=== PATIENT | male | born 1970 | race Caucasian/White ===

== ENCOUNTER → 2019-05-25 | Day surgery (SDC) | payer BC ==
[~2019-05-25] MED LIST: Lactated Ringers 1,000 ML IV SCH; Midazolam 1 MG/ML 2 ML SDV ONE; Propofol 200 MG/20 ML SDV ONE; fentaNYL 100 MCG/2 ML SDV ONE; hydrOXYzine HCl 100 MG/2 ML SDV IM ONE
[2019-05-25 09:27] VITALS: BP 122/78; PULSE 82
--- NOTE | 2019-05-25 11:43 | OR ---
DATE OF PROCEDURE: 05/25/2019 SURGEON: Torito Dan MD PREOPERATIVE DIAGNOSES: Gastroesophageal reflux disease, colon cancer screening. POSTOPERATIVE DIAGNOSES: Gastroesophageal reflux disease, hiatal hernia, gastric polyp, unremarkable colonoscopy. PROCEDURES: Esophagogastroduodenoscopy with biopsy resection of gastric polyp, biopsy of gastroesophageal junction, colonoscopy to the cecum. ANESTHESIA: IV anesthesia with monitored anesthesia care. INDICATION: This 48-year-old white male is referred for upper and lower endoscopy. Indication for upper endoscopy is gastroesophageal reflux disease. He is having heartburn. Indication for colonoscopy is colon cancer screening. He has never had a colonoscopic exam. I counseled him for the procedures, including risks and alternatives, and he gave his informed consent to proceed. DESCRIPTION OF PROCEDURE: The patient was placed in the left lateral decubitus position. IV anesthesia was administered by the Anesthesia Service. Time-out was held. The flexible video Olympus upper endoscope was passed through his mouth, down the esophagus, and into his stomach. The scope was easily passed through the pylorus, into the duodenum, reaching its third portion. The scope was then slowly withdrawn, examining the mucosa throughout. The duodenal mucosa appeared unremarkable. The scope was brought up through the pylorus into the antrum. The antrum appeared unremarkable. The scope was retroflexed. The most proximal stomach appeared unremarkable, except for a hiatal hernia. We would also see small gastric polyps. The scope was straightened and removed the largest of the gastric polyps with the biopsy forceps. It broke off like a fundic gland polyp would. The scope was then brought up through the hiatal hernia to the GE junction. This appeared inflamed. We obtained multiple, totalling at least 6 biopsies of the gastroesophageal junction. The scope was then brought proximally up through remainder of the esophagus, which otherwise appeared unremarkable, and it was removed. Next, a rectal exam was performed, which was unremarkable. The flexible video Olympus colonoscope was introduced through his anus, up his rectum, out his colon all the way to the cecum. Once the cecum was reached, the scope was slowly withdrawn, examining the mucosa throughout. No mucosal abnormalities were noted. The scope was retroflexed in the rectum with the distal rectum appearing unremarkable. The scope was straightened and removed. He tolerated the procedure well. Torito Dan MD /[id number]
== END ==
LOC: JP.SDS 06:02
PROVIDERS: ATTEND Surgery
DX: Z12.11 Encounter for screening for malignant neoplasm of colon (principal); K21.9 Gastro-esophageal reflux disease without esophagitis; K44.9 Diaphragmatic hernia without obstruction or gangrene; K31.7 Polyp of stomach and duodenum; F17.210 Nicotine dependence, cigarettes, uncomplicated; E66.9 Obesity, unspecified; Z68.41 Body mass index [BMI] 40.0-44.9, adult
CPT/HCPCS: 43239; 45378; 88305; J2250; J2704; J3010; J7120

== ENCOUNTER → 2020-05-20 | Day surgery (SDC) | payer BC ==
[~2020-05-20] MED LIST changes: +Dextrose 5%-Lactated Ringers 1,000 ML IV SCH; +Glycopyrrolate 0.2 MG/ML 2 ML SDV IVPUSH ONE; -Lactated Ringers 1,000 ML IV SCH; -hydrOXYzine HCl 100 MG/2 ML SDV IM ONE
[2020-05-20 14:10] VITALS: BP 112/71; PULSE 64
--- NOTE | 2020-05-27 10:46 | OR ---
DATE OF PROCEDURE: 05/20/2020 SURGEON: Jose Carter MD PREOPERATIVE DIAGNOSIS: Gastroesophageal reflux disease refractory to medical management. POSTOPERATIVE DIAGNOSES: 1. Moderate-sized hiatal hernia (4 cm) with active gastroesophageal reflux disease and possible Cummins's esophagus. 2. Fundic gastric gland polyps. OPERATIVE PROCEDURE: Flexible upper GI endoscopy with biopsies of esophagogastric junction for histologic evaluation. ANESTHESIA: IV sedation. INDICATION FOR PROCEDURE: A 49-year-old presenting with increasingly symptomatic gastroesophageal reflux disease associated with morbid obesity and also likely some significant obstructive sleep apnea. The plan is to proceed with upper GI endoscopy with biopsies as indicated. Potential risks including bleeding and perforation were discussed, and the patient wishes to proceed. DETAILS OF PROCEDURE: The patient was taken to the operating room, placed in a left lateral decubitus position. IV sedation was administered, after which the upper GI endoscope was passed orally through the length of the esophagus, into the stomach with retroflexion view of the fundus, thereafter through the pyloric channel and into the proximal duodenum. Findings included some reddening and edema in the hypopharynx and larynx consistent with ongoing reflux disease. The upper esophageal sphincter and esophageal body were unremarkable. The patient did have a moderate-sized hiatal hernia measuring around 4 cm. It was associated with quite active gastroesophageal reflux disease with reddened streaks extending upward into the esophagus. There was also some possible or probable Cummins's esophagus with both upper extension of the columnar mucosa above the upper gastric folds as well as some islands of columnar mucosa up within the esophagus. This was not associated with any plaquing or stricturing or gross evidence of neoplastic change. Within the stomach, the patient had multiple fundic gland-type polyps. These previously had been biopsied. Otherwise, the remainder of the gastric and proximal duodenal exams were unremarkable. At this point, multiple biopsies were obtained from esophagogastric junction, sent for histologic evaluation. Minimal bleeding from the biopsy sites was seen and the procedure then concluded. It was noted that the patient had a quite obvious marked obstructive sleep apnea with the physical ther requiring quite a bit of work in terms of maintaining airway patency during the course of the sedation. This situation to be discussed with the patient last week regarding treatment options. Presently, he is on both Pepcid and Prevacid and has gastroesophageal reflux disease. With his morbid obesity, he would be a poor candidate for Radha fundoplication with very poor both short and long-term outcomes expected in this patient and would be much better served by a Ricarda-en-Y gastric bypass which would treat the reflux disease as well as the weight-related comorbidities. This was discussed with the patient and his and they wished to proceed in that direction. The initial consultation will be set up regarding weight loss surgery and we will initiate some Dietary visits to get that process under way. Jose Carter MD /[id number]
== END ==
LOC: JP.SDS 10:17
PROVIDERS: ATTEND Surgery
DX: K31.7 Polyp of stomach and duodenum (principal); K21.9 Gastro-esophageal reflux disease without esophagitis; K44.9 Diaphragmatic hernia without obstruction or gangrene; G47.33 Obstructive sleep apnea (adult) (pediatric); E66.01 Morbid (severe) obesity due to excess calories; Z68.39 Body mass index [BMI] 39.0-39.9, adult
CPT/HCPCS: 43239; J2250; J2704; J3010; J3490; J7121; 88305; 88312

== ENCOUNTER 2020-11-14 05:35 | Inpatient (IN) | payer BC ==
[2020-11-14] MEDS ORDERED: Acetaminophen 500 MG Tab PO ONE (06:00)
[2020-11-14] MEDS ORDERED: Dextrose 5%-Lactated Ringers 1,000 ML IV SCH ×2 (06:00→11:30)
[2020-11-14] MEDS ORDERED: Scopolamine 1.5 MG Transdermal Patch TOP SCH (06:00)
[2020-11-14] MEDS ORDERED: cefOXitin 2 GM in Sodium Chloride 0.9% 50 ML IV ONE (06:00)
[2020-11-14] MEDS ORDERED: Celecoxib 200 MG Cap PO ONE (06:00)
[2020-11-14] MEDS ORDERED: cefOXitin 2 GM Vial ONE (06:34)
[2020-11-14 06:42] LABS: HEMOGLOBIN A1C 6.2 % (4.5-6.2)
[2020-11-14] MEDS ORDERED: Rocuronium 50 MG/5 ML Vial ONE (07:14)
[2020-11-14] MEDS ORDERED: Dexamethasone 4 MG/ML SDV ONE (07:14)
[2020-11-14] MEDS ORDERED: Ondansetron 4 MG/2 ML SDV ONE (07:14)
[2020-11-14] MEDS ORDERED: Neostigmine Methylsulfate 1 MG/ML 5 ML Syringe ONE (07:14)
[2020-11-14] MEDS ORDERED: Propofol 200 MG/20 ML SDV ONE (07:14)
[2020-11-14] MEDS ORDERED: Glycopyrrolate 0.2 MG/ML 5 ML MDV ONE (07:14)
[2020-11-14] MEDS ORDERED: Succinylcholine 200 MG/10 ML MDV ONE (07:14)
[2020-11-14] MEDS ORDERED: Magnesium Sulfate 3.2 GM in Sodium Chloride 0.9% 100 ML IV SCH (07:30)
[2020-11-14] MEDS ORDERED: Magnesium Sulfate 3.5 GM in Sodium Chloride 0.9% 250 ML IV ONE (07:30)
[2020-11-14] MEDS ORDERED: Ketamine 500 MG/5 ML MDV IV SCH (07:30)
[2020-11-14] MEDS ORDERED: Ketamine 50 MG in Sodium Chloride 0.9% 49.5 ML IV SCH (07:30)
[2020-11-14] MEDS ORDERED: fentaNYL 250 MCG/5 ML SDV ONE ×2 (07:53→08:07)
[2020-11-14] MEDS ORDERED: hydrOXYzine HCL 100 MG/2 ML SDV IM ONE (10:29)
[2020-11-14] MEDS ORDERED: Cyclobenzaprine 10 MG Tab PO PRN (11:28)
[2020-11-14] MEDS ORDERED: Lactated Ringers 1,000 ML IV SCH (11:30)
[2020-11-14] MEDS ORDERED: hydrOXYzine HCL 100 MG/2 ML SDV IM PRN (12:00)
[2020-11-14] MEDS ORDERED: Labetalol 20 MG/4 ML Syringe IVPUSH PRN (12:00)
[2020-11-14] MEDS ORDERED: traMADol 50 MG Tab PO PRN (12:00)
[2020-11-14] MEDS ORDERED: HYDROmorphone 1 MG/ML Syringe IV PRN (12:00)
[2020-11-14] MEDS ORDERED: oxyCODONE 5 MG Tab PO PRN (12:00)
[2020-11-14] MEDS ORDERED: Albuterol/Ipratropium 3.0-0.5 MG/3 ML Neb Soln INH PRN (12:00)
[2020-11-14] MEDS ORDERED: Glucagon,Human Recombinant 1 MG Vial IM PRN (12:00)
[2020-11-14] MEDS ORDERED: 50% Dextrose in Water 50 ML Syringe IVPUSH PRN (12:00)
[2020-11-14] MEDS ORDERED: HYDROmorphone 0.5 MG/0.5 ML Syringe IVPUSH PRN (12:00)
[2020-11-14] MEDS ORDERED: Insulin Lispro 100 Unit/ML 3 ML KwikPen SUBCUT PRN (12:00)
[2020-11-14] MEDS ORDERED: Acetaminophen 500 MG Tab PO PRN (12:00)
[2020-11-14] MEDS ORDERED: Ondansetron 4 MG/2 ML SDV IVPUSH PRN (12:00)
[2020-11-14] MEDS ORDERED: diphenhydrAMINE 50 MG/ML SDV IVPUSH PRN (12:00)
[2020-11-14] MEDS ORDERED: Calcium Gluconate 10% 1 GM/10 ML SDV IVPUSH PRN (12:00)
[2020-11-14] MEDS ORDERED: Metoclopramide 10 MG/2 ML SDV IVPUSH PRN (12:00)
[2020-11-14] MEDS ORDERED: Pantoprazole 40 MG Vial IVPUSH SCH (14:00)
[2020-11-14] MEDS: cefOXitin 2 GM in Sodium Chloride 0.9% 50 ML IV SCH ×2 (14:07→19:24)
[2020-11-14] MEDS: Acetaminophen 500 MG Tab PO SCH ×2 (14:07→23:02)
[2020-11-14] MEDS: Heparin Sodium 5,000 Units/ML Vial SUBCUT SCH ×2 (15:47→23:02)
[2020-11-14] MEDS ORDERED: MVI, Adult with Vitamin K 10 ML, Thiamine 200 MG, Zinc/Copper/Manganese/Selenium 1 ML i... IV SCH ×4 (16:00)
[2020-11-15] MEDS: cefOXitin 2 GM in Sodium Chloride 0.9% 50 ML IV SCH ×4 (02:35→20:35)
[2020-11-15] MEDS ORDERED: Iopamidol 612 MG/ML 50 ML SDV PO ONE (04:00)
[2020-11-15] MEDS: Acetaminophen 500 MG Tab PO SCH ×3 (05:50→22:37)
[2020-11-15] MEDS ORDERED: Ondansetron 4 MG Tab.DIS PO PRN (07:25)
[2020-11-15] MEDS ORDERED: hydrOXYzine HCl 25 MG Tab PO PRN (07:26)
[2020-11-15] MEDS ORDERED: Dextrose 5%-Lactated Ringers 1,000 ML IV SCH (07:30)
[2020-11-15] MEDS: Heparin Sodium 5,000 Units/ML Vial SUBCUT SCH ×2 (08:48→15:14)
[2020-11-15] MEDS: Insulin Lispro 100 Unit/ML 3 ML KwikPen SUBCUT SCH ×4 (08:50→21:08)
[2020-11-15] MEDS: SCOPOLAMINE PATCH CHECK TOP SCH (08:52)
[2020-11-15] MEDS: Celecoxib 200 MG Cap PO SCH ×2 (08:53→20:36)
--- NOTE | 2020-11-15 12:15 | PN ---
DATE OF SERVICE: 11/15/2020 SUBJECTIVE: Lazaro is postoperative day #1. His upper GI this morning was normal. Vital signs have been stable. He has been up, ambulating. Oral intake 1352. Urine output 1750. BARRY 95. He has been taking Tylenol and Celebrex for pain. He has walked 4 times in the ibarra. States his pain is well controlled. REVIEW OF SYSTEMS: Remainder of review of systems negative for any pertinent positives and negatives. OBJECTIVE: GENERAL: Lazaro is a pleasant 50-year-old male. He is alert and orientated. VITAL SIGNS: TPR 99.2, 104, 18, blood pressure 139/82. HEENT: Negative. NECK: Supple. HEART: Regular rate and rhythm. LUNGS: Clear. ABDOMEN: Dressings dry and intact. BARRY drain is a light red drainage at 95 mL for the past 24 hours and abdominal binder is on. EXTREMITIES: Without peripheral edema. ASSESSMENT: 1. Laparoscopic Ricarda-en-Y gastric bypass surgery. 2. Liver biopsy. 3. Repair of diaphragmatic hernia. 4. Excision of mediastinal lipoma. 5. Partial gastrectomy. POSTOPERATIVE DIAGNOSES: 1. Morbid obesity. 2. Hepatomegaly. 3. Large paraesophageal hernia. 4. 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 5. Date of procedure: 11/14/2020. Surgeon: Jose Carter MD. PLAN: 1. Decrease IV to 100 mL per hour. 2. Discontinue every 6 hour Accu-Cheks. 3. Accu-Cheks at mealtime and bedtime. 4. Dressing off, may shower. 5. Decrease IV to 100 mL per hour. 6. May saline lock IV if oral intake 800. 7. Atarax 25 mg one q.4 hours p.r.n. pain. 8. Zofran ODT 4 mg every 4 hours sublingual p.r.n. nausea. 9. We will evaluate p.r.n. or in a.m. Cindy Chapman PA-C /[id number]
[2020-11-15] MEDS ORDERED: MVI, Adult with Vitamin K 10 ML, Thiamine 200 MG, Zinc/Copper/Manganese/Selenium 1 ML i... IV SCH ×4 (16:00)
[2020-11-15] MEDS ORDERED: Pantoprazole 40 MG Delayed-Release Granules 1 Packet PO SCH (16:30)
[2020-11-16] MEDS: Heparin Sodium 5,000 Units/ML Vial SUBCUT SCH ×2 (01:43→08:02)
[2020-11-16] MEDS: cefOXitin 2 GM in Sodium Chloride 0.9% 50 ML IV SCH ×2 (01:43→08:02)
[2020-11-16 01:49] VITALS: PULSE 90
[2020-11-16] MEDS: Acetaminophen 500 MG Tab PO SCH (06:08)
[2020-11-16 07:24] VITALS: BP 137/98
[2020-11-16] MEDS: SCOPOLAMINE PATCH CHECK TOP SCH (08:02)
[2020-11-16] MEDS ORDERED: Magnesium Hydroxide 400 MG/5 ML Susp 30 ML Cup PO PRN (08:16)
[2020-11-16] MEDS: Insulin Lispro 100 Unit/ML 3 ML KwikPen SUBCUT SCH (08:18)
[2020-11-16] MEDS ORDERED: Cyanocobalamin (Vitamin B12) 1,000 MCG/ML SDV IM ONE (09:00)
--- NOTE | 2020-11-17 09:18 | CR ---
[facility] HISTORY: Postbariatric surgery FINDINGS: Patient swallowed water-soluble contrast. Upright views of the abdomen show no evidence of extravasation or obstruction. There is a surgical drain in the left upper quadrant IMPRESSION: Status post bariatric surgery No extravasation or obstruction seen
--- NOTE | 2020-11-17 10:50 | DISCH ---
ADMISSION DIAGNOSES: 1. Morbid obesity, body mass index is 41. 2. Borderline diabetes. 3. Gastroesophageal reflux disease. DISCHARGE DIAGNOSES: 1. Laparoscopic Ricarda-en-Y gastric bypass surgery. 2. Liver biopsy. 3. Repair of diaphragmatic hernia. 4. Excision of mediastinal lipoma. 5. Partial gastrectomy. POSTOPERATIVE DIAGNOSES: 1. Morbid obesity. 2. Hepatomegaly. 3. Large paraesophageal diaphragmatic hernia. 4. 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 5. Date of procedure 11/14/2020. Surgeon: Jose Carter MD. HISTORY: Lazaro Knapp is a 50-year-old male with history of morbid obesity and increasing comorbidities. After preoperative evaluation and discussion of possible risks and possible complications, he wished to proceed with surgical procedure. HOSPITAL COURSE: Lazaro had his surgery on 11/14/2020. He had no operative complications. On postoperative day one, his upper GI was normal. He was started on step 2 gastric bypass diet. His oral intake and output were adequate. Pain was controlled per energy protocol. On postoperative day 2, Lazaro was able to be discharged to home. Vital signs stable. He received adequate education of vitamin B12 1000 mcg IM injection. Oral intake 1890. Urine output 1400. His BARRY drain was discontinued. Activity was good. He was discharged to home. Blood sugars were monitored throughout his hospital stay before meals, and the last 24 hours his blood sugar was 148, 124, 137, and 133. He was not on any coverage for his blood sugars prior to hospitalization, and with surgery he will not need to be go going home with any diabetic medications. PHYSICAL EXAMINATION: GENERAL: Lazaro Knapp is a pleasant 50-year-old male. Height 5 feet 5 inches, weight 247, and BMI 41.1. VITAL SIGNS: TPR 97.7, 90, 20, and blood pressure 138/83. HEENT: Negative. NECK: Supple. HEART: Regular rate and rhythm. LUNGS: Clear. ABDOMEN: Trocar incisions healing well. Sutures in place. BARRY drain will be removed prior to discharge. It has been draining a serous pink serosanguineous drainage. Abdominal binder has been on. EXTREMITIES: Without peripheral edema. DISPOSITION: Discharged to home. CONDITION: Stable and improving. HOME MEDICATIONS: 1. Zofran ODT 4 mg sublingual every 4 hours p.r.n. nausea and vomiting. 2. Milk of magnesia 30 mL, two were sent home to take 1 daily p.r.n. constipation. 3. He has Celebrex at home. He is to start taking 200 mg b.i.d. for two weeks. 4. Tylenol 1000 mg every 8 hours. 5. Prevacid 30 mg p.o. b.i.d. 6. Epinephrine 1 ampule IM as directed p.r.n. allergies. 7. Flexeril 10 mg p.o. t.i.d. p.r.n. muscle spasms. DIET: Step 2 gastric bypass diet with no cereal until 11/29/2020. Drink 8 to 10 glasses of water a day. ACTIVITY: No lifting greater than 10 pounds for 2 weeks. Other activity: Walk at least 6 times daily. Driving: Do not drive for 1 week. Shower/bathing: May shower. Keep operative site clean and dry. Wear abdominal binder for 2 weeks and then when doing any lifting. Notify provider if any fever, increased pain, swelling, redness, drainage, nausea, or vomiting. Use incentive spirometer 10 times every hour while awake for 1 week. He is to keep a food journal daily and bring to clinic appointment. /[id number]
--- NOTE | 2020-11-17 11:13 | OR ---
DATE OF PROCEDURE: 11/14/2020 SURGEON: Jose Carter MD PREOPERATIVE DIAGNOSES: 1. Morbid obesity. 2. Large paraesophageal diaphragmatic hernia. POSTOPERATIVE DIAGNOSES: 1. Morbid obesity. 2. Large paraesophageal diaphragmatic hernia. 3. Marked hepatomegaly. 4. Mediastinal lipoma. 5. Area of stomach devascularized, status post pouch formation. OPERATIVE PROCEDURES: Diagnostic laparoscopy with: 1. Laparoscopic Ricarda-en-Y gastric bypass with long limb gastroenterostomy (80353). 2. Jose-Cut needle liver biopsy (80065). 3. Repair of paraesophageal diaphragmatic hernia (63506). 4. Excision of mediastinal lipoma (95698). 5. Partial gastrectomy (92449). ANESTHESIA: General. PICTURE FRAME MAKER: Cindy Chapman PA-C INDICATIONS FOR PROCEDURE: This is a 50-year-old male originally presenting with uncontrolled gastroesophageal reflux disease, was noted to be concurrently morbidly obese. After preoperative discussion, he wished to proceed with a gastric bypass procedure, which would treat both the obesity and its related comorbidities as well as the reflux disease. Potential risks including bleeding, infection, leaks from various GI tract closures, and problems with bowel obstruction over time as well as possibility of cardiopulmonary, septic, or hemorrhagic complications leading to were discussed, and the patient wishes to proceed. DETAILS OF PROCEDURE: The patient was taken to the operating room. After general endotracheal anesthesia was induced, he was placed in a lithotomy position, and the abdomen prepped and draped. At 15 cm inferior and 5 cm left of the xiphoid process, a transverse incision was made, and the peritoneal cavity entered under direct vision with an Optiview trocar, inflated to 15 mmHg pressure with CO2. Laparoscope was reinserted. No underlying trocar insertion site injuries were seen. Bilateral transversus abdominis plane blocks were then placed, and 5 additional trocars were placed across the upper mid abdomen. Liver was noted markedly enlarged and fatty infiltrated. Jose-Cut needle biopsies were obtained from left lobe of liver. Minimal bleeding from the biopsy sites was controlled with electrocautery. At this point, the omentum was divided in the midline up to the level of the transverse colon. This allowed identification of the small bowel to the ligament of Treitz. Small bowel was then traced out 125 cm distal to that point where it was divided transversely with a JOHNY stapler. Small bowel was then traced out an additional 150 cm where the [id number] enteroenterostomy was accomplished with internal firing of the Endo-JOHNY 60 mm stapler. Common opening was then closed transversely with same stapler and the angles anastomosed and mesenteric defect approximated with some 0 Ethibond stitch along with fibrin sealant. The Ricarda limb was brought up through an antecolic position up to the level of the gastroesophageal junction without tension. The liver was then retracted anteriorly. As expected, the patient had a large paraesophageal diaphragmatic hernia with a large amount of prolapse of gastric fundus, perigastric fat, and a tongue of omentum in a plane anterior to the course of the esophagus. This was reduced, and the peritoneum overlying divided and reflected downwards. During the course of dissection, a fairly large mediastinal lipoma was encountered. This was excised and removed via the trocars in a piecemeal manner. The diaphragmatic hernia repair was then repaired with a series of 0 Ethibond sutures reinforced with PTFE pledgets placed in an anterior location. The gastrointestinal balloon catheter was then inflated 15 mL and pulled up snugly against the EG junction. Gastric wall over the apex balloon was then marked with electrocautery, and balloon catheter deflated and pulled up into the esophagus. The lesser omental tissue adjacent to the gastric cardia was then incised allowing dissection behind the stomach, and pouch formation was initiated with a JOHNY black load at the level of the cauterized eric on the gastric cardia. One additional black load was then used up toward the angle of His, and then several additional purple loads were used to complete the pouch formation. Upon completion of the pouch formation, there was an area of ischemia on the otherwise bypassed portion of the stomach. This was somewhat dusky and felt to be at risk for leak, and therefore, this was resected and sent as separate partial gastrectomy specimen. The anvil of a 25 mm EEA stapler was then attached to a [place] sump type tube. The latter was brought down through the mouth and taken out through a small opening in the gastric pouch allowing the anvil likewise to be pulled down within the gastric pouch. The divided end of the Ricarda limb was then opened, and the main body of EEA stapler was passed several centimeters into the lumen of the small bowel, brought up the anvil, and united with it thus creating the gastrojejunostomy. Upon removal of the stapler, double donuts of mucosa were noted within it. The small bowel was closed off with a vascular staple line. Gastrojejunostomy was reinforced with some 3-0 Vicryl seromuscular stitch along with fibrin sealant. The catheter used for the leak test was unable to be passed per Anesthesia. The patient was noted to have what appeared to be some stricture near the upper esophageal sphincter likely related to the chronic reflux disease, and given the appearance of the anastomosis to be very sound, we elected not to pursue that further in terms of leak test. At this point, the area was irrigated with antibiotic-containing saline solution. A single Isidro-Bailey drain was then placed through the left lateral trocar site and positioned adjacent to gastrojejunostomy, from there up into the gastric pouch. The trocars were then sequentially removed, and the peritoneal cavity deflated. Incisions were closed with some 4-0 Vicryl skin stitch, which was also used to fix the gastric pouch, and the patient was taken to the recovery room in satisfactory condition. Physician assistant professor, Cindy Chapman, played an essential role in assisting in this case, helping to position the patient, retract structures as needed as well as suturing and cutting sutures when indicated. Her presence improved patient safety and decreased operative time. Jose Carter MD /[id number]
== END 2020-11-16 09:38 | disposition home or self-care (01) | DRG 403 ==
LOC: JP.SDS 05:35 → JP.SDSSCHI 05:35 → EDSTATUS 09:45 → JP.MS 10:00
PROVIDERS: ADMIT Surgery; ATTEND Surgery
PROC: 0D164ZA Bypass Stomach to Jejunum, Percutaneous Endoscopic Approach (ICD-10-PCS; principal; 2020-11-14)
PROC: 0FB24ZX Excision of Left Lobe Liver, Percutaneous Endoscopic Approach, Diagnostic (ICD-10-PCS; 2020-11-14)
PROC: 0BQT4ZZ Repair Diaphragm, Percutaneous Endoscopic Approach (ICD-10-PCS; 2020-11-14)
PROC: 0JB63ZZ Excision of Chest Subcutaneous Tissue and Fascia, Percutaneous Approach (ICD-10-PCS; 2020-11-14)
PROC: 0DB64ZZ Excision of Stomach, Percutaneous Endoscopic Approach (ICD-10-PCS; 2020-11-14)
DX: E66.01 Morbid (severe) obesity due to excess calories (principal); R73.03 Prediabetes; K21.9 Gastro-esophageal reflux disease without esophagitis; R16.0 Hepatomegaly, not elsewhere classified; K44.9 Diaphragmatic hernia without obstruction or gangrene; D17.4 Benign lipomatous neoplasm of intrathoracic organs; Z68.41 Body mass index [BMI] 40.0-44.9, adult; Z98.84 Bariatric surgery status; Z91.030 Bee allergy status; Z79.899 Other long term (current) drug therapy
CPT/HCPCS: 36415; 74240; 74240-26; 80053; 82962; 83036; 83735; 83880; 84100; 85027; 86850; 86900; 86901; 94762; A9270-GY; C9113; J0171; J0330; J0694; J1100; J1644; J1815; J2405; J2704; J2710; J2795; J3010; J3410; J3411; J3475; J3490; J7050; J7120; J7121; Q9967

== ENCOUNTER 2021-07-31 06:52 | Inpatient (IN) | payer BC ==
[2021-07-31] MEDS ORDERED: Bupivacaine 0.5%/EPINEPHrine 1:200,000 50 ML MDV ONE (07:03)
[2021-07-31] MEDS ORDERED: Glycopyrrolate 0.2 MG/ML 5 ML MDV ONE (07:17)
[2021-07-31] MEDS ORDERED: Rocuronium 50 MG/5 ML Vial ONE (07:17)
[2021-07-31] MEDS ORDERED: Succinylcholine 200 MG/10 ML MDV ONE (07:17)
[2021-07-31] MEDS ORDERED: Neostigmine Methylsulfate 1 MG/ML 5 ML Syringe ONE (07:17)
[2021-07-31] MEDS ORDERED: Ondansetron 4 MG/2 ML SDV ONE (07:17)
[2021-07-31] MEDS ORDERED: Dexamethasone 4 MG/ML SDV ONE (07:17)
[2021-07-31] MEDS ORDERED: fentaNYL 250 MCG/5 ML SDV ONE (07:17)
[2021-07-31] MEDS ORDERED: Propofol 200 MG/20 ML SDV ONE (07:17)
[2021-07-31] MEDS ORDERED: Acetaminophen 500 MG Tab PO ONE (07:19)
[2021-07-31] MEDS: Dextrose 5%-Lactated Ringers 1,000 ML IV SCH ×3 (07:32→23:03)
[2021-07-31 07:46] LABS: CORONAVIRUS COVID-19 NAA NEGATIVE (NEGATIVE)
[2021-07-31] MEDS ORDERED: Ketamine 18 MG in Sodium Chloride 0.9% 19.82 ML IV SCH (08:30)
[2021-07-31] MEDS ORDERED: Ropivacaine 32 ML, dexAMETHasone 8 MG, EPINEPHrine 0.4 MG, Sodium Chloride 0.9% 45.6 ML NERVRT SCH ×4 (08:30)
[2021-07-31] MEDS ORDERED: Ketamine 500 MG/5 ML MDV IV SCH (08:30)
[2021-07-31] MEDS ORDERED: cefOXitin 2 GM in Sodium Chloride 0.9% 50 ML IV ONE (08:30)
[2021-07-31] MEDS ORDERED: Ketorolac 30 MG/ML SDV ONE (10:03)
[2021-07-31] MEDS ORDERED: HYDROmorphone 1 MG/ML Syringe IV PRN (12:00)
[2021-07-31] MEDS ORDERED: HYDROmorphone 0.5 MG/0.5 ML Syringe IVPUSH PRN (12:00)
[2021-07-31] MEDS: Pantoprazole 40 MG Vial IVPUSH SCH (12:06)
[2021-07-31] MEDS: Vitamin A 10,000 Unit Cap PO SCH (12:06)
[2021-07-31] MEDS: Acetaminophen 500 MG Tab PO SCH ×3 (12:07→23:07)
[2021-07-31] MEDS: cefOXitin 2 GM in Sodium Chloride 0.9% 50 ML IV SCH ×2 (13:42→19:05)
[2021-07-31] MEDS ORDERED: Celecoxib 200 MG Cap PO ONE (16:00)
[2021-07-31] MEDS: oxyCODONE 5 MG Tab PO PRN (22:11)
[2021-08-01] MEDS: cefOXitin 2 GM in Sodium Chloride 0.9% 50 ML IV SCH ×4 (02:20→19:24)
[2021-08-01] MEDS: Acetaminophen 500 MG Tab PO SCH ×4 (05:10→23:51)
[2021-08-01] MEDS: tiZANidine 2 MG Tab PO PRN ×2 (08:06→14:18)
[2021-08-01] MEDS: Vitamin A 10,000 Unit Cap PO SCH (08:07)
[2021-08-01] MEDS: Celecoxib 200 MG Cap PO SCH ×2 (08:07→21:00)
[2021-08-01] MEDS: Ondansetron 4 MG/2 ML SDV IVPUSH PRN ×2 (08:18→15:14)
[2021-08-01] MEDS: Dextrose 5%-Lactated Ringers 1,000 ML IV SCH ×3 (10:00→16:45)
[2021-08-01] MEDS: oxyCODONE 5 MG Tab PO PRN (10:18)
[2021-08-01] MEDS: Pantoprazole 40 MG Vial IVPUSH SCH (12:44)
[2021-08-02] MEDS: cefOXitin 2 GM in Sodium Chloride 0.9% 50 ML IV SCH ×4 (01:58→19:42)
[2021-08-02] MEDS: Dextrose 5%-Lactated Ringers 1,000 ML IV SCH ×4 (01:59→22:15)
[2021-08-02] MEDS: Acetaminophen 500 MG Tab PO SCH ×3 (05:34→17:45)
[2021-08-02] MEDS: Ondansetron 4 MG/2 ML SDV IVPUSH PRN (08:39)
[2021-08-02] MEDS: Celecoxib 200 MG Cap PO SCH ×2 (10:17→20:56)
[2021-08-02] MEDS ORDERED: Vitamin A 10,000 Unit Cap PO ONE (11:00)
[2021-08-02] MEDS: Pantoprazole 40 MG Vial IVPUSH SCH (12:01)
[2021-08-03] MEDS: Acetaminophen 500 MG Tab PO SCH ×2 (01:03→05:05)
[2021-08-03] MEDS: cefOXitin 2 GM in Sodium Chloride 0.9% 50 ML IV SCH ×2 (01:04→08:13)
[2021-08-03] MEDS: Dextrose 5%-Lactated Ringers 1,000 ML IV SCH (05:12)
[2021-08-03 08:00] VITALS: BP 117/89; PULSE 86
[2021-08-03] MEDS: Celecoxib 200 MG Cap PO SCH (08:13)
--- NOTE | 2021-08-03 10:51 | PN ---
DATE OF SERVICE: 08/02/2021 The patient has been afebrile with stable vital signs other than having somewhat of a higher heart rate in the 118 range, temperature running in the 97 to 98 range consistently, and blood pressure is satisfactory at 127/90. The pulse oximetry remains good at 99%. The BARRY drain overnight began to slow down and became more of a bile color. I suspect he probably has a bile leak. The labs showed normal liver function tests other than bilirubin going up to 1.4, but his liver function tests otherwise being normal and bilirubin up slightly is probably peritoneal reabsorption that occurred when the BARRY drain was being somewhat overwhelmed in terms of output. His abdomen is otherwise soft and nondistended. Oral intake remains good. He had some incisional discomfort, but by no means had any significant peritoneal signs. The labs showed white count has now normalized at 6.8, it was low yesterday. Hemoglobin is now 16.2, which probably represents some degree of dehydration. Creatinine is 1.4. This is up somewhat from baseline, which was 0.7 at the time of preoperative labs earlier this month. The plan will be doing a Gram stain C and S of the fluid to make sure there is not any bacterial colonization. This would raise for possible GI tract injury somewhat, although the patient does not really show signs of that per se. If there is some ongoing question, we may need to obtain a CT scan of the abdomen, although that would be relatively limited value due to the lack of contrast getting into the area of the bypassed stomach and duodenum. The cholecystectomy itself was very clean in terms of the ductal dissection and clipping, but the patient did have a fairly active cholecystitis with the gallbladder bed requiring extensive cauterization and it is possible we are dealing with a small bile leak from that. I doubt there being a major common bile duct injury again with the cystic duct, cystic artery being easily identified and quite small and coming away from the gallbladder. One could also see the course of common bile duct through the patient's lack of fat in that area. At any rate, we will restart some antibiotics if we see any bacteria on the Gram stain and recheck some labs in the morning. We will leave the IV running fairly high. I think he was probably somewhat dry because of the BARRY drainage yesterday. Hopefully, we will see the creatinine coming down with the decrease in BARRY drain. We will leave the IV rate running 150, that should probably get him caught up in terms of his fluid status. Jose Carter MD /[id number]
--- NOTE | 2021-08-03 11:36 | PN ---
DATE OF SERVICE: 08/01/2021 The patient has been afebrile with stable vital signs. He still is having quite a bit of pain probably related to the cut down incision in the infraumbilical area. The BARRY drains are putting out what appeared to be some slightly bile-stained fluid and the chemistries however looked satisfactory with bilirubin 0.6 and alkaline phosphatase of 69. For pain control, we will keep him around today and plan to probably discharge home tomorrow. We will add Zanaflex to the medication regimen to help with some of the muscle spasm. Jose Carter MD /[id number]
--- NOTE | 2021-08-03 19:48 | DISCH ---
ADMISSION DIAGNOSIS: Biliary dyskinesia. DISCHARGE DIAGNOSES: Diagnostic laparoscopy with: 1. Cholecystectomy. 2. Excision of perihepatic lymph node for biliary dyskinesia, ejection fraction 15% with subacute/chronic cholecystitis, enlarged graciela hepatic lymph node. Date of procedure 07/31/2021. Surgeon: Jose Carter MD. HISTORY: Lazaro Knapp is a 50-year-old male with biliary dyskinesia. After preoperative evaluation, discussion of possible risks and possible complications, he wished to proceed with surgical procedure. HOSPITAL COURSE: Anirudh had his surgery on 07/31/2021. He had no operative complications. On postop day 1, his BARRY drain was putting out an increased amount of bilious drainage. Labs were checked. He was started on vitamin A 50,000 units, and on 08/02/2021, he continued to put out quite a bit out of his BARRY drain and pain was controlled. His activity was good. On 08/03/2021, he was able to be discharged to home with a BARRY drain and he was taught how to empty it. He had no other complications. LABORATORY DATA: On day of discharge, white count 5.6, bilirubin 0.6. Remainder of liver function tests were normal. PHYSICAL EXAMINATION: GENERAL: Lazaro is a 50-year-old male. VITAL SIGNS: Height is 5 feet 7 inches, weight is incorrect. TPR is 97, 88, 18, blood pressure 130/88. HEENT: Negative. NECK: Supple. HEART: Regular rate and rhythm. LUNGS: Clear. ABDOMEN: Dressings dry and intact. BARRY drain is draining a light tea-colored drainage. EXTREMITIES: Without peripheral edema. DISPOSITION: Discharged to home. CONDITION: Stable and improving. FOLLOWUP: Appointment with Cindy Chapman PA-C, on 08/06/2021. MEDICATIONS: He is to resume his home medicationwith addition of Celebrex 200 mg p.o. b.i.d. for 28 days and vitamin A 50,000 international units p.o. daily. Both prescriptions were written by Jose Carter MD. DIET: Usual diet as tolerated. Drink 8 to 10 glasses of water a day. ACTIVITY: No lifting greater than 10 pounds for 2 weeks. OTHER ACTIVITY: Walk 6 times daily inside your home. Driving: Do not drive for 1 week. DISCHARGE INSTRUCTIONS: Shower/bathing: May shower. Keep operative site clean and dry. SPECIAL INSTRUCTION: Wear abdominal binder for 2 weeks, then as tolerated. Empty BARRY drain when half full, no color, when straw colored for 3 days. May have BARRY drain removed at the clinic. Notify provider if any fever, increased pain, swelling, redness, drainage, nausea, or vomiting. Use incentive spirometer 10 times every hour while awake for 1 week. /[id number]
--- NOTE | 2021-08-11 09:03 | OR ---
DATE OF PROCEDURE: 07/31/2021 SURGEON: Jose Carter MD PREOPERATIVE DIAGNOSIS: Biliary dyskinesia. POSTOPERATIVE DIAGNOSES: 1. Biliary dyskinesia associated with subacute and chronic cholecystitis. 2. Enlarged graciela hepatis lymph node. OPERATIVE PROCEDURE: Diagnostic laparoscopy with: 1. Cholecystectomy (09568). 2. Excision of enlarged graciela hepatis lymph node (32040). ANESTHESIA: General. INDICATION FOR PROCEDURE: This is a 50-year-old male presenting with some ongoing upper abdominal pain. Eventually, the patient had a CCK stimulated HIDA scan, which showed a below normal ejection fraction of 15% and the CCK injection did reproduce much of his pain symptoms. The plan is to proceed with a laparoscopic or if necessary open cholecystectomy. Potential risks of the procedure including bleeding, infection, injury to common bile duct or other adjacent viscera, possible persistent symptoms postoperatively were all reviewed, and the patient wishes to proceed. DETAILS OF PROCEDURE: The patient was taken to the operating room, placed in a supine position. After general endotracheal anesthesia was induced, the abdomen was prepped and draped. A transverse subumbilical incision was initially made. Likely related to the patient's marked weight loss following a gastric bypass, the peritoneum could not be safely penetrated with a Veress needle as it appeared to be extremely elastic. Given this, a small cutdown was then made roughly 2 cm inferior to the umbilicus. This allowed eventual entrance into the peritoneal cavity and 12 mm port was then placed and peritoneal cavity inflated to 15 mmHg pressure of CO2. Following insertion of the trocar, the area underlying the entrance to the abdomen and the periumbilical area was examined and no injuries were evident. A 12 mm epigastric trocar and a 5 mm right abdominal trocar were then placed. Bilateral transversus abdominis plane blocks were then positioned as well. The patient was noted to have a markedly edematous gallbladder consistent with a significant element of subacute cholecystitis more than one would typically see with a biliary dyskinesia. The gallbladder was retracted anteriorly and laterally, and the dissection began on the gallbladder neck with Harmonic Scalpel. This then continued down to the gallbladder neck and cystic duct junction. The adjacent cystic artery was then easily identified adjacent to this and both structures were clipped 3 times proximally and once distally and divided. Gallbladder was then dissected off the gallbladder bed using a combination of Harmonic scalpel and cautery. The epigastric trocar site contained some sludge within it. No overt stones were seen. Hemostasis was then obtained with electrocautery over the gallbladder bed, and at that point, no bile leaks or other significant problems were present. The patient did have a somewhat enlarged graciela hepatis lymph node. This was excised using Harmonic scalpel and sent as a separate specimen. At that point, no further problems were noted. Some fibrin sealant was then placed over the area of the cystic duct triangle and gallbladder bed to assist in maintenance of hemostasis, and following this, a 10 flat Isidro-Bailey drain was placed through the right lateral trocar site and positioned into the area of the gallbladder bed. Remaining trocars were then removed. The fascia at the epigastric site was closed with 0 Vicryl stitch. At the cutdown site, initially the peritoneum was reapproximated with a 0 Vicryl stitch. The fascia was then approximated with series of 0 Vicryl stitch as well and the skin at both sites then closed with 4-0 Vicryl skin stitches. Local anesthetic consisting of 0.5% Marcaine with epinephrine was then injected into the trocar sites as well, and the patient was taken to the recovery room in satisfactory condition. There were no evident complications. Jose Carter MD /[id number]
== END 2021-08-03 09:45 | disposition home or self-care (01) | DRG 263 ==
LOC: JP.SDS 06:52 → JP.MS 10:45 → JP.SDS 10:46 → JP.MS 08-01 07:00 → UNDOADMIN 08-01 07:00 → JP.MS 08-01 07:30
PROVIDERS: ADMIT Surgery; ATTEND Surgery
PROC: 0FT44ZZ Resection of Gallbladder, Percutaneous Endoscopic Approach (ICD-10-PCS; principal; 2021-07-31)
PROC: 07BD4ZZ Excision of Aortic Lymphatic, Percutaneous Endoscopic Approach (ICD-10-PCS; 2021-07-31)
DX: K82.8 Other specified diseases of gallbladder (principal); N52.9 Male erectile dysfunction, unspecified; K21.9 Gastro-esophageal reflux disease without esophagitis; E66.01 Morbid (severe) obesity due to excess calories; K91.2 Postsurgical malabsorption, not elsewhere classified; E53.9 Vitamin B deficiency, unspecified; E55.9 Vitamin D deficiency, unspecified; E60 Dietary zinc deficiency; E50.9 Vitamin A deficiency, unspecified; Z68.41 Body mass index [BMI] 40.0-44.9, adult; Z90.49 Acquired absence of other specified parts of digestive tract; Z98.890 Other specified postprocedural states; Z98.84 Bariatric surgery status
CPT/HCPCS: 0241U; 36415; 80053; 82247; 83735; 83880; 84075; 84100; 85025; 87070; 87077; 87186; 87205; 88304; 88305; A9270-GY; C9113; J0171; J0330; J0694; J1100; J1885; J2405; J2704; J2710; J2795; J3010; J3490; J7121

== ENCOUNTER 2021-08-03 16:59 | Emergency (ER) | payer BC ==
[2021-08-03 17:23] VITALS: BP 132/91; PULSE 104
--- NOTE | 2021-08-03 18:07 | EDM.PDOC ---
ED HPI GENERAL MEDICAL PROBLEM - General Chief Complaint: General Stated Complaint: DRAINAGE TUBE FALLING OUT? Time Seen by Provider: 08/03/21 18:00 Source of Information: Reports: Patient, Family History Limitations: Reports: No Limitations - History of Present Illness INITIAL COMMENTS - FREE TEXT/NARRATIVE: 50-year-old male has a BARRY drain in his right upper quadrant from a recent cholecystectomy. He is concerned that it may have pulled out some because it seems longer and he can only palpate the BARRY drain for a few inches under his skin. It seems to be functioning normally. Onset: Unknown/Unsure Location: Reports: Abdomen Associated Symptoms: Reports: No Other Symptoms - Related Data Allergies Allergy/AdvReac Type Severity Reaction Status Date / Time venom-honey bee Allergy Severe Hives Verified 08/03/21 17:30 [bee venom (honey bee)] hornets Allergy Severe Hives Uncoded 08/03/21 17:30 Home Meds: Home Meds EPINEPHrine [Epinephrine] 1 ampule IM ASDIRECTED 09/29/14 [History] Famotidine 20 mg PO DAILY 05/20/20 [History] Calcium Citrate/Vitamin D3 [Calcium Citrate - Vit D Tablet] 1 tab PO BID 07/30/21 [History] Cholecalciferol (Vitamin D3) [Vitamin D3] 1,000 unit PO DAILY 07/30/21 [History] Cyanocobalamin (Vitamin B12) [Vitamin B12] 1,000 mcg PO DAILY 07/30/21 [History] Multivit-Min/Iron/Folic Acid/K [Bariatric Mv-Iron 45 mg Cap] 1 tab PO BID 07/30/21 [History] Vitamin B Complex [B Complex] 1 tab PO DAILY 07/30/21 [History] Acetaminophen [Tylenol Extra Strength] 1,000 mg PO Q6H tablet 08/03/21 [Rx] Celecoxib [CeleBREX] 200 mg PO BID cap 08/03/21 [Rx] Past Medical History HEENT History: Reports: Impaired Vision, Other (See Below) Other HEENT History: wears glasses Respiratory History: Reports: Sleep Apnea Gastrointestinal History: Reports: GERD, Hemorrhoids Musculoskeletal History: Reports: Back Pain, Chronic, Fracture, Neck Pain, Chronic, Other (See Below) Other Musculoskeletal History: degenerative disc disease, fractured toe Neurological History: Reports: Headaches, Chronic Endocrine/Metabolic History: Reports: Obesity/BMI 30+ Hematologic History: Reports: B12 Deficiency Dermatologic History: Reports: Venous Stasis Dermatitis - Infectious Disease History Infectious Disease History: Reports: Chicken Pox - Past Surgical History HEENT Surgical History: Reports: Adenoidectomy Respiratory Surgical History: Reports: None GI Surgical History: Reports: Bariatric Procedure, Colon, EGD, Hernia Repair/Other Endocrine Surgical History: Reports: None Neurological Surgical History: Reports: None Musculoskeletal Surgical History: Reports: None Dermatological Surgical History: Reports: None Social & Family History - Family History Cardiac: Reports: CAD GI: Reports: Hiatal Hernia Neurological: Reports: Alzheimers Disease, CVA Psychiatric: Reports: Depression Endocrine/Metabolic: Reports: Diabetes, type II Oncologic: Reports: Skin, Other (See Below) Other Oncologic Family History: throat - Tobacco Use Tobacco Use Status *Q: Never Tobacco User - Caffeine Use Caffeine Use: Reports: None ED ROS GENERAL - Review of Systems Review Of Systems: See Below Constitutional: Denies: Fever, Chills Respiratory: Reports: No Symptoms Cardiovascular: Reports: No Symptoms GI/Abdominal: Reports: Abdominal Pain (Mild postoperative pain) : Reports: No Symptoms Skin: Reports: No Symptoms (The skin around the BARRY site looks healthy) Neurological: Reports: No Symptoms ED EXAM, GENERAL - Physical Exam Exam: See Below Exam Limited By: No Limitations General Appearance: Alert, No Apparent Distress, Anxious Head: Atraumatic Respiratory/Chest: No Respiratory Distress, Lungs Clear GI/Abdominal: Normal Bowel Sounds, Soft, Other (BARRY exit looks normal, there is fluid draining through the tube and there is no opaque white area of tube showing) Neurological: Alert, Oriented Course - Vital Signs Last Recorded V/S: Last Vital Signs Temp 97.6 F 08/03/21 17:34 Pulse 104 H 08/03/21 17:34 Resp 15 08/03/21 17:34 BP 132/91 H 08/03/21 17:34 Pulse Ox 97 08/03/21 17:34 - Re-Assessments/Exams Free Text/Narrative Re-Assessment/Exam: 08/03/21 18:[address] Carter, he was reassured that there was no white opaque area of the tube showing, the suture was still in place and it seemed to be functioning normally. Recheck on Tuesday as planned. Departure - Departure Time of Disposition: 18:30 Disposition: Home, Self-Care 01 Clinical Impression: Encounter for wound re-check - Discharge Information Instructions: Wound Care, Adult Referrals: Chinmay Clarke MD [Primary Care Provider] - Forms: ED Department Discharge Care Plan Goals: Recheck tuesday as scheduled. Sepsis Event Note (ED) - Evaluation Sepsis Screening Result: No Definite Risk - Focused Exam Vital Signs: Vital Signs Temp Pulse Resp BP Pulse Ox 08/03/21 17:34 97.6 F 104 H 15 132/91 H 97 08/03/21 17:21 97.6 F 104 H 15 132/91 H 97
== END 2021-08-03 18:31 | disposition home or self-care (01) ==
LOC: JP.ED 16:59
DX: Z48.03 Encounter for change or removal of drains (principal); K21.9 Gastro-esophageal reflux disease without esophagitis; E66.9 Obesity, unspecified; Z68.25 Body mass index [BMI] 25.0-25.9, adult; Z90.49 Acquired absence of other specified parts of digestive tract; Z91.030 Bee allergy status; Z91.038 Other insect allergy status; Z79.899 Other long term (current) drug therapy
CPT/HCPCS: 99282

== ENCOUNTER 2021-08-09 18:11 | Inpatient (IN) | payer BC ==
[2021-08-09] MEDS ORDERED: Meropenem 1 GM in Sodium Chloride 0.9% 100 ML IV ONE (20:26)
[2021-08-09] MEDS ORDERED: Lactated Ringers 1,000 ML IV SCH (20:30)
[2021-08-09] MEDS ORDERED: fentaNYL 100 MCG/2 ML SDV IVPUSH PRN (21:12)
[2021-08-09 21:31] LABS: CORONAVIRUS COVID-19 NAA NEGATIVE (NEGATIVE)
[2021-08-09] MEDS ORDERED: Zolpidem 5 MG Tab PO PRN ×2 (21:50→22:20)
[2021-08-09] MEDS: Dextrose 5%-Lactated Ringers 1,000 ML IV SCH (22:15)
[2021-08-09] MEDS: Ondansetron 4 MG/2 ML SDV IVPUSH PRN (22:45)
[2021-08-10] MEDS ORDERED: Meropenem 1 GM in Sodium Chloride 0.9% 100 ML IV ONE (04:00)
[2021-08-10] MEDS ORDERED: Acetaminophen 325 MG Tab PO PRN (04:48)
[2021-08-10] MEDS: Dextrose 5%-Lactated Ringers 1,000 ML IV SCH (05:39)
[2021-08-10] MEDS ORDERED: Ketamine 500 MG/5 ML MDV IV SCH ×3 (07:00→09:00)
[2021-08-10] MEDS ORDERED: Meropenem 500 MG SDV ONE ×3 (07:21→11:59)
[2021-08-10] MEDS ORDERED: Bupivacaine 0.5% 50 ML MDV ONE (07:21)
[2021-08-10] MEDS ORDERED: Lidocaine 1% with EPINEPHrine 1:100,000 50 ML MDV ONE (07:22)
[2021-08-10] MEDS ORDERED: Dexamethasone 4 MG/ML SDV ONE (07:37)
[2021-08-10] MEDS ORDERED: Neostigmine Methylsulfate 1 MG/ML 5 ML Syringe ONE (07:37)
[2021-08-10] MEDS ORDERED: Rocuronium 50 MG/5 ML Vial ONE ×2 (07:37→10:49)
[2021-08-10] MEDS ORDERED: Succinylcholine 200 MG/10 ML MDV ONE (07:37)
[2021-08-10] MEDS ORDERED: fentaNYL 250 MCG/5 ML SDV ONE ×2 (07:37→11:19)
[2021-08-10] MEDS ORDERED: Ondansetron 4 MG/2 ML SDV ONE (07:37)
[2021-08-10] MEDS ORDERED: Propofol 200 MG/20 ML SDV ONE (07:37)
[2021-08-10] MEDS ORDERED: Glycopyrrolate 0.2 MG/ML 5 ML MDV ONE (07:37)
[2021-08-10] MEDS ORDERED: Meropenem 500 MG in Sodium Chloride 0.9% 50 ML IV ONE (09:00)
[2021-08-10] MEDS ORDERED: Ketamine 19 MG in Sodium Chloride 0.9% 19.81 ML IV SCH (09:00)
[2021-08-10] MEDS ORDERED: Ropivacaine 34 ML, dexAMETHasone 8 MG, EPINEPHrine 0.4 MG, Sodium Chloride 0.9% 43.6 ML NERVRT SCH ×4 (09:00)
[2021-08-10] MEDS ORDERED: Lactated Ringers 1,000 ML ONE ×2 (09:54→11:19)
[2021-08-10] MEDS ORDERED: LINEZOLID ONE (10:10)
[2021-08-10] MEDS ORDERED: diphenhydrAMINE 25 MG Cap PO PRN (10:30)
[2021-08-10] MEDS ORDERED: Naloxone 0.4 MG/ML SDV IVPUSH PRN (10:30)
[2021-08-10] MEDS ORDERED: Ondansetron 4 MG/2 ML SDV IVPUSH PRN (10:30)
[2021-08-10] MEDS ORDERED: diphenhydrAMINE 50 MG/ML SDV IVPUSH PRN ×2 (10:30→14:00)
[2021-08-10] MEDS ORDERED: Linezolid 600 MG in Premix Bag 1 BAG IV ONE (11:00)
[2021-08-10] MEDS ORDERED: Naloxone 0.4 MG/ML SDV IV PRN (11:00)
[2021-08-10] MEDS: HYDROmorphone/Normal Saline 6 MG/30 ML PCA Vial IV PRN (11:04)
[2021-08-10] MEDS ORDERED: Sodium Chloride 0.9% 10 ML ONE (11:59)
[2021-08-10] MEDS ORDERED: Cyclobenzaprine 10 MG Tab PO PRN (13:48)
[2021-08-10] MEDS ORDERED: Albuterol/Ipratropium 3.0-0.5 MG/3 ML Neb Soln INH PRN (13:50)
[2021-08-10] MEDS ORDERED: Metoclopramide 10 MG/2 ML SDV IVPUSH PRN (14:00)
[2021-08-10] MEDS ORDERED: Dextrose 5%-Lactated Ringers 1,000 ML IV SCH (14:00)
[2021-08-10] MEDS ORDERED: Lactated Ringers 1,000 ML IV SCH (14:00)
[2021-08-10] MEDS ORDERED: hydrOXYzine HCL 100 MG/2 ML SDV IM PRN (14:00)
[2021-08-10] MEDS ORDERED: Acetaminophen 500 MG Tab PO PRN (14:00)
[2021-08-10] MEDS ORDERED: Labetalol 20 MG/4 ML Syringe IVPUSH PRN (14:00)
[2021-08-10] MEDS ORDERED: MVI, Adult with Vitamin K 10 ML, Thiamine 200 MG, Zinc/Copper/Manganese/Selenium 1 ML i... IV SCH ×4 (16:00)
[2021-08-10] MEDS: Pantoprazole 40 MG Vial IVPUSH SCH (16:39)
[2021-08-10] MEDS: Acetaminophen 500 MG Tab PO SCH (16:40)
[2021-08-10] MEDS: Meropenem 500 MG in Sodium Chloride 0.9% 50 ML IV SCH ×2 (16:43→21:28)
[2021-08-10] MEDS: Heparin Sodium 5,000 Units/ML Vial SUBCUT SCH (21:27)
[2021-08-10] MEDS: Linezolid 600 MG in Premix Bag 1 BAG IV SCH (22:35)
[2021-08-11] MEDS: Meropenem 500 MG in Sodium Chloride 0.9% 50 ML IV SCH ×4 (03:55→21:54)
[2021-08-11] MEDS ORDERED: Lactated Ringers 1,000 ML IV SCH (07:13)
[2021-08-11] MEDS ORDERED: Dextrose 5%-Lactated Ringers 1,000 ML IV SCH (07:15)
[2021-08-11] MEDS ORDERED: Phenol/Sodium Phenolate Spray 180 ML Bottle MUCMEM PRN (07:19)
[2021-08-11] MEDS: Acetaminophen 500 MG Tab PO SCH ×4 (08:20→23:17)
[2021-08-11] MEDS: Heparin Sodium 5,000 Units/ML Vial SUBCUT SCH ×2 (08:22→21:35)
[2021-08-11] MEDS: Linezolid 600 MG in Premix Bag 1 BAG IV SCH ×2 (11:26→22:21)
[2021-08-11] MEDS: 1: AA 5%/Calcium/D15W/Lytes 1,000 ML with MVI, Adult with Vitamin K 10 ML, Zinc/Copper/M IV SCH ×6 (12:23→22:38)
[2021-08-11] MEDS: Pantoprazole 40 MG Vial IVPUSH SCH (16:13)
[2021-08-11] MEDS: Ondansetron 4 MG/2 ML SDV IVPUSH PRN (23:17)
[2021-08-12] MEDS: Meropenem 500 MG in Sodium Chloride 0.9% 50 ML IV SCH ×4 (03:32→21:25)
[2021-08-12] MEDS ORDERED: Lactated Ringers 1,000 ML IV SCH (07:25)
[2021-08-12] MEDS ORDERED: Central Total Parenteral Nutrition Bag SCH (07:30)
[2021-08-12] MEDS: 1: AA 5%/Calcium/D15W/Lytes 1,000 ML with MVI, Adult with Vitamin K 10 ML, Zinc/Copper/M IV SCH ×9 (08:36→18:36)
[2021-08-12] MEDS: Heparin Sodium 5,000 Units/ML Vial SUBCUT SCH ×2 (08:44→21:17)
[2021-08-12] MEDS: Acetaminophen 500 MG Tab PO SCH ×2 (08:44→16:21)
[2021-08-12] MEDS ORDERED: Cyanocobalamin (Vitamin B12) 1,000 MCG/ML SDV IM ONE (09:00)
[2021-08-12] MEDS: Linezolid 600 MG in Premix Bag 1 BAG IV SCH ×2 (10:18→23:57)
[2021-08-12] MEDS: Pantoprazole 40 MG Vial IVPUSH SCH (16:22)
[2021-08-12] MEDS: HYDROmorphone/Normal Saline 6 MG/30 ML PCA Vial IV PRN (17:57)
[2021-08-13] MEDS: Acetaminophen 500 MG Tab PO SCH ×4 (00:01→23:01)
[2021-08-13] MEDS: Meropenem 500 MG in Sodium Chloride 0.9% 50 ML IV SCH ×4 (04:15→21:18)
[2021-08-13] MEDS: 1: AA 5%/Calcium/D15W/Lytes 1,000 ML with MVI, Adult with Vitamin K 10 ML, Zinc/Copper/M IV SCH ×6 (04:48→15:05)
[2021-08-13] MEDS ORDERED: Bupivacaine 0.5% 50 ML MDV ONE (06:35)
[2021-08-13] MEDS ORDERED: Lidocaine 1% with EPINEPHrine 1:100,000 50 ML MDV ONE (06:35)
[2021-08-13] MEDS ORDERED: fentaNYL 100 MCG/2 ML SDV ONE (07:03)
[2021-08-13] MEDS ORDERED: Midazolam 1 MG/ML 2 ML SDV ONE (07:04)
[2021-08-13] MEDS ORDERED: Propofol 200 MG/20 ML SDV ONE ×2 (07:04→07:34)
[2021-08-13] MEDS ORDERED: Ropivacaine 34 ML, dexAMETHasone 8 MG, EPINEPHrine 0.4 MG, Sodium Chloride 0.9% 43.6 ML NERVRT SCH ×4 (07:15)
[2021-08-13] MEDS ORDERED: Meropenem 500 MG SDV ONE (07:29)
[2021-08-13] MEDS ORDERED: Lactated Ringers 1,000 ML ONE (07:45)
[2021-08-13] MEDS: Heparin Sodium 5,000 Units/ML Vial SUBCUT SCH ×2 (08:59→21:18)
[2021-08-13] MEDS ORDERED: Furosemide 20 MG/2 ML VIAL IVPUSH ONE (10:00)
[2021-08-13] MEDS: Ampicillin/Sulbactam Na 3 GM in Sodium Chloride 0.9% 100 ML IV SCH ×3 (10:56→23:04)
[2021-08-13] MEDS: Pantoprazole 40 MG Vial IVPUSH SCH (16:06)
[2021-08-14] MEDS: 1: AA 5%/Calcium/D15W/Lytes 1,000 ML with MVI, Adult with Vitamin K 10 ML, Zinc/Copper/M IV SCH ×12 (01:18→21:01)
[2021-08-14] MEDS ORDERED: Iopamidol 612 MG/ML 50 ML SDV PO STA (03:20)
[2021-08-14] MEDS: Ampicillin/Sulbactam Na 3 GM in Sodium Chloride 0.9% 100 ML IV SCH ×4 (03:55→22:42)
[2021-08-14] MEDS: Meropenem 500 MG in Sodium Chloride 0.9% 50 ML IV SCH ×4 (06:03→21:51)
[2021-08-14] MEDS ORDERED: Central Total Parenteral Nutrition Bag SCH (07:30)
[2021-08-14] MEDS ORDERED: Furosemide 20 MG/2 ML VIAL IVPUSH ONE (08:01)
[2021-08-14] MEDS ORDERED: Furosemide 20 MG/2 ML VIAL ONE (08:16)
[2021-08-14] MEDS: Acetaminophen 500 MG Tab PO SCH ×3 (08:18→23:52)
[2021-08-14] MEDS: Heparin Sodium 5,000 Units/ML Vial SUBCUT SCH ×2 (08:19→21:51)
[2021-08-14] MEDS: Lactobacillus Rhamnosus GG (Probiotic) Cap PO SCH ×2 (10:24→21:51)
[2021-08-14] MEDS: Pantoprazole 40 MG Vial IVPUSH SCH (16:01)
[2021-08-15] MEDS: 1: AA 5%/Calcium/D15W/Lytes 1,000 ML with MVI, Adult with Vitamin K 10 ML, Zinc/Copper/M IV SCH ×3 (00:44)
[2021-08-15] MEDS: Meropenem 500 MG in Sodium Chloride 0.9% 50 ML IV SCH ×4 (04:16→21:09)
[2021-08-15] MEDS: Ampicillin/Sulbactam Na 3 GM in Sodium Chloride 0.9% 100 ML IV SCH ×4 (05:17→22:38)
[2021-08-15] MEDS: Acetaminophen 500 MG Tab PO SCH ×2 (08:29→16:43)
[2021-08-15] MEDS: Lactobacillus Rhamnosus GG (Probiotic) Cap PO SCH ×2 (08:30→21:10)
[2021-08-15] MEDS: Heparin Sodium 5,000 Units/ML Vial SUBCUT SCH ×2 (08:31→21:10)
[2021-08-15] MEDS ORDERED: 1: AA 5%/Calcium/D15W/Lytes 1,000 ML with MVI, Adult with Vitamin K 10 ML, Zinc/Copper/M IV SCH ×3 (10:00)
[2021-08-15] MEDS: 1: Amino Acids 5%/Dextrose 15% 1,000 ML with MVI, Adult with Vitamin K 10 ML, Zinc/Copp IV SCH ×6 (11:41→23:45)
[2021-08-15] MEDS: Pantoprazole 40 MG Vial IVPUSH SCH (16:40)
[2021-08-15] MEDS: traMADol 50 MG Tab PO PRN (21:25)
[2021-08-16] MEDS: Acetaminophen 500 MG Tab PO SCH ×4 (00:08→23:56)
[2021-08-16] MEDS: Meropenem 500 MG in Sodium Chloride 0.9% 50 ML IV SCH ×4 (04:06→21:05)
[2021-08-16] MEDS: Ampicillin/Sulbactam Na 3 GM in Sodium Chloride 0.9% 100 ML IV SCH ×4 (04:56→22:20)
[2021-08-16] MEDS: traMADol 50 MG Tab PO PRN (06:39)
[2021-08-16] MEDS: Heparin Sodium 5,000 Units/ML Vial SUBCUT SCH ×2 (08:11→21:00)
[2021-08-16] MEDS: Lactobacillus Rhamnosus GG (Probiotic) Cap PO SCH ×2 (08:13→20:59)
[2021-08-16] MEDS ORDERED: 1: Amino Acids 5%/Dextrose 15% 1,000 ML with MVI, Adult with Vitamin K 10 ML, Zinc/Copp IV SCH ×3 (12:00)
[2021-08-16] MEDS: 1: Amino Acids 5%/Dextrose 15% 1,000 ML with MVI, Adult with Vitamin K 10 ML, Zinc/Copp IV SCH ×3 (14:24)
[2021-08-16] MEDS: Pantoprazole 40 MG Vial IVPUSH SCH (17:20)
[2021-08-17] MEDS: Meropenem 500 MG in Sodium Chloride 0.9% 50 ML IV SCH ×4 (03:43→21:06)
[2021-08-17] MEDS: Ampicillin/Sulbactam Na 3 GM in Sodium Chloride 0.9% 100 ML IV SCH ×4 (04:28→22:00)
[2021-08-17] MEDS ORDERED: Albumin Human 25 GM in Premix Bag 1 BAG IV ONE (07:24)
[2021-08-17] MEDS ORDERED: Central Total Parenteral Nutrition Bag SCH (07:30)
[2021-08-17] MEDS: 1: Amino Acids 5%/Dextrose 15% 1,000 ML with MVI, Adult with Vitamin K 10 ML, Zinc/Copp IV SCH ×6 (07:55→22:04)
[2021-08-17] MEDS: Lactobacillus Rhamnosus GG (Probiotic) Cap PO SCH ×2 (08:17→21:06)
[2021-08-17] MEDS: Acetaminophen 500 MG Tab PO SCH ×3 (08:17→23:34)
[2021-08-17] MEDS: Heparin Sodium 5,000 Units/ML Vial SUBCUT SCH ×2 (08:17→21:06)
[2021-08-17] MEDS ORDERED: Sodium Chloride 0.9% 1,000 ML IV SCH (11:15)
[2021-08-17] MEDS: traMADol 50 MG Tab PO PRN (11:32)
[2021-08-17] MEDS: Pantoprazole 40 MG Vial IVPUSH SCH (16:27)
[2021-08-18] MEDS: Meropenem 500 MG in Sodium Chloride 0.9% 50 ML IV SCH (04:04)
[2021-08-18] MEDS: Ampicillin/Sulbactam Na 3 GM in Sodium Chloride 0.9% 100 ML IV SCH (04:19)
[2021-08-18] MEDS ORDERED: Central Total Parenteral Nutrition Bag SCH (07:30)
[2021-08-18 07:59] VITALS: BP 115/83; PULSE 76
[2021-08-18] MEDS: Acetaminophen 500 MG Tab PO SCH (07:59)
[2021-08-18] MEDS: Heparin Sodium 5,000 Units/ML Vial SUBCUT SCH (08:00)
[2021-08-18] MEDS: Lactobacillus Rhamnosus GG (Probiotic) Cap PO SCH (08:00)
== END 2021-08-18 11:05 | disposition home or self-care (01) | DRG 221 ==
LOC: JP.ED 18:11 → JP.MS 20:35 → UNDOADMIN 20:35 → JP.MS 08-10 12:15 → JP.ICU 08-10 13:30 → JP.MS 08-15 14:04 → UNDODISIN 08-18 11:05
PROVIDERS: ADMIT Surgery; ATTEND Surgery
PROC: 0DS80ZZ Reposition Small Intestine, Open Approach (ICD-10-PCS; principal; 2021-08-10)
PROC: 0DB80ZZ Excision of Small Intestine, Open Approach (ICD-10-PCS; 2021-08-10)
PROC: 0DB80ZZ Excision of Small Intestine, Open Approach (ICD-10-PCS; 2021-08-10)
PROC: 0DQ80ZZ Repair Small Intestine, Open Approach (ICD-10-PCS; 2021-08-10)
PROC: 0W9J0ZZ Drainage of Pelvic Cavity, Open Approach (ICD-10-PCS; 2021-08-10)
PROC: 02HV33Z Insertion of Infusion Device into Superior Vena Cava, Percutaneous Approach (ICD-10-PCS; 2021-08-10)
PROC: 3E0336Z Introduction of Nutritional Substance into Peripheral Vein, Percutaneous Approach (ICD-10-PCS; 2021-08-10)
PROC: 0WQF0ZZ Repair Abdominal Wall, Open Approach (ICD-10-PCS; 2021-08-13)
DX: K56.2 Volvulus (principal); K63.1 Perforation of intestine (nontraumatic); K65.1 Peritoneal abscess; R18.8 Other ascites; K91.2 Postsurgical malabsorption, not elsewhere classified; E53.9 Vitamin B deficiency, unspecified; E55.9 Vitamin D deficiency, unspecified; H54.7 Unspecified visual loss; K21.9 Gastro-esophageal reflux disease without esophagitis; G89.29 Other chronic pain; M54.9 Dorsalgia, unspecified; M54.2 Cervicalgia; M51.35 Other intervertebral disc degeneration, thoracolumbar region; E66.9 Obesity, unspecified; E53.8 Deficiency of other specified B group vitamins; Z86.19 Personal history of other infectious and parasitic diseases; Z90.89 Acquired absence of other organs; Z91.030 Bee allergy status; Z90.49 Acquired absence of other specified parts of digestive tract; Z98.84 Bariatric surgery status; Z91.09 Other allergy status, other than to drugs and biological substances; Z79.899 Other long term (current) drug therapy; Z87.890 Personal history of sex reassignment; Y83.8 Other surgical procedures as the cause of abnormal reaction of the patient, or of later complication, without mention of misadventure at the time of the procedure; Z68.23 Body mass index [BMI] 23.0-23.9, adult; B96.89 Other specified bacterial agents as the cause of diseases classified elsewhere; Z20.822 Contact with and (suspected) exposure to COVID-19
CPT/HCPCS: 0241U; 36415; 71045; 71045-26; 74176; 74240; 74240-26; 80053; 83605; 83735; 83880; 84100; 85025; 85027; 87070; 87075; 87077; 87186; 87205; 87493; 88307; 96365; 99285; 99285-25; A9270-GY; C9113; J0171; J0295; J0330; J1100; J1170; J1642; J1644; J1940; J2020; J2185; J2250; J2405; J2704; J2710; J2795; J3010; J3411; J3420; J3490; J7030; J7120; J7121; P9047; Q9967

== ENCOUNTER 2021-09-01 18:13 | Emergency (ER) | payer BC ==
[2021-09-01 18:26] VITALS: BP 119/86; PULSE 104
[2021-09-01] MEDS ORDERED: Lidocaine 4% Top Soln 50 ML Bottle TOP ONE (18:37)
== END 2021-09-01 18:54 | disposition home or self-care (01) ==
LOC: JP.ED 18:13
DX: K64.8 Other hemorrhoids (principal); K21.9 Gastro-esophageal reflux disease without esophagitis; E66.9 Obesity, unspecified; Z68.1 Body mass index [BMI] 19.9 or less, adult; Z91.030 Bee allergy status; Z91.038 Other insect allergy status; Z79.899 Other long term (current) drug therapy
CPT/HCPCS: 99282; A9270-GY

== ENCOUNTER 2022-07-19 05:27 | Day surgery (SDC) | payer BC ==
[2022-07-19] MEDS ORDERED: Dextrose 5%-Lactated Ringers 1,000 ML IV SCH (06:00)
[2022-07-19] MEDS ORDERED: Lidocaine 1% with EPINEPHrine 1:100,000 50 ML MDV ONE (06:45)
[2022-07-19] MEDS ORDERED: Bupivacaine 0.5% 30 ML SDV ONE (06:45)
[2022-07-19] MEDS ORDERED: Midazolam 1 MG/ML 2 ML SDV ONE (07:10)
[2022-07-19] MEDS ORDERED: fentaNYL 100 MCG/2 ML SDV ONE ×2 (07:10→08:16)
[2022-07-19] MEDS ORDERED: Propofol 200 MG/20 ML SDV ONE ×2 (07:11→08:07)
[2022-07-19] MEDS ORDERED: ceFAZolin 2 GM in Premix Bag 1 BAG IV ONE (07:12)
[2022-07-19] MEDS ORDERED: Acetaminophen 500 MG Tab PO ONE (07:13)
[2022-07-19] MEDS ORDERED: ceFAZolin 2 GM in Sodium Chloride 0.9% 50 ML IV ONE (07:15)
[2022-07-19] MEDS ORDERED: Ketorolac 30 MG/ML SDV ONE (08:32)
[2022-07-19] MEDS ORDERED: traMADol 50 MG Tab PO PRN (09:31)
[2022-07-19 10:32] VITALS: BP 107/69; PULSE 58
== END 2022-07-19 11:10 | disposition home or self-care (01) ==
LOC: JP.SDS 05:27
PROVIDERS: ATTEND Surgery
DX: K40.30 Unilateral inguinal hernia, with obstruction, without gangrene, not specified as recurrent (principal); G57.81 Other specified mononeuropathies of right lower limb; E66.9 Obesity, unspecified; K21.9 Gastro-esophageal reflux disease without esophagitis; Z68.21 Body mass index [BMI] 21.0-21.9, adult; Z79.899 Other long term (current) drug therapy; Z91.030 Bee allergy status
CPT/HCPCS: 49507; 64772; 88302; A9270; C1713; C1781; J1885; J2250; J2704; J3010; J3490; J7121

== ENCOUNTER 2024-09-30 17:46 | Emergency (ER) | payer BC, OTHER ==
[2024-09-30 17:55] VITALS: BP 123/82; PULSE 72
== END 2024-09-30 20:23 | disposition home or self-care (01) ==
LOC: JP.ED 17:46
DX: S96.912A Strain of unspecified muscle and tendon at ankle and foot level, left foot, initial encounter (principal); E66.9 Obesity, unspecified; Z86.16 Personal history of COVID-19; Z79.899 Other long term (current) drug therapy; Z91.030 Bee allergy status; Z68.22 Body mass index [BMI] 22.0-22.9, adult; W19.XXXA Unspecified fall, initial encounter
CPT/HCPCS: 73630-LT; 99283